=== PATIENT | male | born 1970 | race Caucasian/White ===

== ENCOUNTER 2021-09-25 10:05 | Outpatient (REF) | payer MEDICAID, SELFPAY ==
[2021-09-25 10:57] LABS: COVID-19 Test Negative (Negative); IDNOW Serial# 08D9AD1C
== END 2021-09-25 10:06 | disposition home or self-care (01) ==
LOC: HO.LAB 10:05
PROVIDERS: Visit Provider Internal Medicine
DX: Z20.822 Contact with and (suspected) exposure to COVID-19 (principal)
CPT/HCPCS: 87635; C9803

== ENCOUNTER 2023-10-01 14:55 | Outpatient (REF) | payer MEDICAID, SELFPAY ==
[2023-10-01 16:36] LABS: Estimated Average Glucose 94 mg/dL; Hemoglobin A1c % 4.9 % (<6.0)
[2023-10-01 17:45] LABS: Alanine Aminotransferase 49 U/L (0-40); Albumin Level 4.4 g/dL (3.5-5.0); Alkaline Phosphatase 73 U/L (39-117); Anion Gap 9 (12-20); Aspartate Amino Transferase 30 U/L (5-37); Bilirubin Total 0.6 mg/dL (0.0-1.0); Blood Urea Nitrogen 10 mg/dL (9-16); Carbon Dioxide 29 mmol/L (22-29); Chloride 102 mmol/L (96-108); Cholesterol 197 mg/dL (<200); Estimated Glomerular Filt Rate > 60; Glucose Random 71 mg/dL (60-115); HDL Cholesterol 48 mg/dL (>40); LDL Cholesterol Calculated 89 mg/dL (<100); Potassium 4.1 mmol/L (3.3-5.1); Sodium 136 mmol/L (135-145); Total Protein 7.2 g/dL (6.5-8.0); Triglycerides 302 mg/dL (<150)
[2023-10-02 04:24] LABS: HIV AB/AG Nonreactive (Nonreactive); HIV Num 1 0.05 S/CO (0.00-0.99); ~Hepatitis C Antibody Nonreactive (Nonreactive)
[2023-10-02 05:52] LABS: CT PCR NOT DETECTED (Not Detect.); NG PCR NOT DETECTED (Not Detect.)
[2023-10-03 09:29] LABS: RPR Rapid Plasma Reagin NON-REACTIVE (NON-REACTIVE)
== END 2023-10-01 14:56 | disposition home or self-care (01) ==
LOC: HO.HHCL 14:55
PROVIDERS: Visit Provider General Practice
DX: Z00.00 Encounter for general adult medical examination without abnormal findings (principal)
CPT/HCPCS: 0353U; 36415; 80053; 80061; 83036; 86592; 86803; 87389

== ENCOUNTER 2024-08-13 10:13 | Outpatient (REF) | payer MEDICAID, SELFPAY ==
--- NOTE | ~2024-08-13 | XR_ITS ---
EXAMINATION: XR LUMBOSACRAL SPINE CLINICAL INFORMATION: pain ; left-sided low back pain with left sided sciatica. COMPARISON: 10/20/2018. TECHNIQUE: Three views of the lumbosacral spine. FINDINGS: Normal bone mineralization. No fractures, compression deformities, or suspicious bone lesions. Transitional lumbosacral anatomy present with 6 nonrib-bearing vertebral bodies. For the purposes of this report, the last fully formed vertebral body will be termed L5. If intervention is considered, confirmation of level counting is recommended. There is a trace left convex scoliosis. There is a normal lumbar lordosis. There is a 3 mm retrolisthesis of L3-4. This appears degenerative. Alignment is otherwise normal. Mild to moderate disc space narrowing noted at L3-4 and L4-5. Minimal narrowing at L5-S1. Facets are normally aligned. No pars defects. Mild degenerative facet arthropathy present L4-S1. The sacrum and SI joints appear normal. No soft tissue abnormalities. XR/XR lumbar spine 2-3V IMPRESSION: 1. No acute findings lumbar spine. 2. Transitional lumbosacral anatomy. See above. 3. Mild spondylosis relatively confined to L3-S1 as discussed. Electronically signed by: Jerome Calderón MD 08/13/2024 12:37 PM [facility]
== END 2024-08-13 10:14 | disposition home or self-care (01) ==
LOC: HO.HHCX 10:13
PROVIDERS: Visit Provider Student in an Organized Health Care Education/Training Program
DX: M54.50 Low back pain, unspecified (principal); G89.29 Other chronic pain
CPT/HCPCS: 72100

== ENCOUNTER → 2024-08-13 10:13 | Outpatient (BNV) | payer MEDICAID, SELFPAY | PROVIDERS: Visit Provider Radiology Diagnostic Radiology | DX: M54.42 Lumbago with sciatica, left side (principal) | CPT/HCPCS: 72100 ==

== ENCOUNTER 2024-11-02 08:54 | Outpatient (AMB) | payer MEDICAID, SELFPAY ==
--- NOTE | 2024-11-02 08:56 | MHC.OFFVIS ---
Vital Signs 11/02/24 09:10 Height 5 ft 7 in Weight 169 lb 12.095 oz BMI 26.6 BP 156/82 H Blood Pressure Location Rt brachial Position Sitting Pulse 88 Pulse Source Pulse Oximeter Pulse Oximetry (%) 98 Oxygen Delivery Method Room Air Intake Visit Reasons: Colonoscopy screening Intake Note: NEW PATIENT for initial colo screening. Chief Complaint; C/O intermittent constipation and bitter taste. Pt denies any heartburn or dysphagia at this time, no tx to this point. Pt denies any additional concerns or pertinent FMHx. Pt was shown med list and verified accurate. President And Chief Executive Officer Required: Yes President And Chief Executive Officer Services: President And Chief Executive Officer Present President And Chief Executive Officer Name: [facility] [place] + Ham [id number] Information Interpreted: clinical only Accompanied by: Self / Same As Patient Allergies shellfish derived Allergy (Severe, Verified 11/02/24 08:56) Anaphylaxis marijuana (cannabis) Allergy (Unknown, Verified 11/02/24 08:56) Unknown HPI HPI Colonoscopy screening: Details: 54 year old? male with past medical history of asthma, inguinal hernia, status post repair, allergies is here today for pre colonoscopy screening.? Patient was sent to us by his PCP.? This is his first colonoscopy screening.? Patient denies any gastrointestinal symptoms in the past or at present.? Denies any personal or family history of gastrointestinal disease, colon polyps, or CRC.? Denies history of difficulty with sedation or anesthesia in the past.? Negative for history of sleep apnea.? Denies any history of cardiac, renal, pulmonary, or hepatic disease.?? No history of infectious? diseases like hepatitis A, B, C, HIV or tuberculosis.? Patient is not on any anticoagulation [facility] Medical History Inguinal hernia Gastroesophageal junction ulcer Allergic reaction to plant, excluding food Mild persistent asthma Mood disorder Psoriasis Chronic low back pain Surgical History History of esophagogastroduodenoscopy Social History Alcohol intake: unknown Patient Tobacco Use Status: Current everyday Tobacco user Review of Systems Const Denies weight gain and Denies weight loss ENT Reports no additional complaints, Denies dysphagia and Denies odynophagia Card Reports no additional complaints Resp Reports no additional complaints GI Denies abdominal pain, Denies belching, Denies melena, Denies bloating, Denies change in bowel habits, Denies dysphagia, Denies excessive flatus, Denies dyspepsia, Denies heartburn, Denies diarrhea, Denies loose stools, Denies nausea, Denies odynophagia and Denies vomiting Reports no additional complaints Musc Reports no additional complaints Neuro Reports no additional complaints Psych Reports no additional complaints Endo Reports no additional complaints Physical Exam Vital Signs: Last Vital Signs Pulse 88 11/02/24 09:10 BP 156/82 H 11/02/24 09:10 Pulse Ox 98 11/02/24 09:10 Oxygen Delivery Method Room Air 11/02/24 09:10 BMI result Body Mass Index 26.6 Const General: healthy appearing, no acute distress and well developed Nutritional Appearance: well nourished Orientation/consciousness: patient oriented x3 Resp Effort & Inspection: normal respiratory effort, able to speak in complete sentences, no tracheal deviation and symmetric chest movement Auscultation: clear to auscultation bilaterally Cardio Rate: regular rate GI Inspection: Yes normal to inspection and No distended Palpation (GI): Soft to palpation, not firm, nontender and No hepatosplenomegaly present Auscultation: normal bowel sounds General: Yes no CVA tenderness Back/Spine/Pelvis Back: no CVA tenderness Skin General skin exam: elasticity normal, turgor normal and dry skin Neuro General: patient oriented x3 Psych Appearance: grossly normal Mental Status: mental status grossly normal Assessment & Plan Assessment & Plan (1) Screen for colon cancer: Code(s): Z12.11 - Encounter for screening for malignant neoplasm of colon Plan Patient denies any GI, cardiac or respiratory symptoms.? Denies any issues with anesthesia in the past.? Denies any history of sleep apnea.? No history infectious diseases in the past or present.? Not on any anticoagulation therapy.? No family or personal history of colon cancer or polyps.? Patient denies melena, hematochezia, unintentional weight loss or ribbon like stools.? Discussed at length the pre-procedure,? prep, diet & medications as well as what to expect prior, during and after the procedure.?? Stressed the importance of good bowel prep.? Recommended the use of Vaseline or Calmoseptine OTC & baby wipes with bowel movements to promote comfort.? ?Patient verbalizes understanding and agrees to plan of care.? He was given the opportunity to ask questions and all questions answered.? We will see him after the procedure.? Medications: New bisacodyl (Dulcolax (bisacodyl)) take 4 tabs at noon the day before your colonoscopy 20 mg (4 x 5 mg) PO ONCE 1 day 4 tabs 0RF constipation Z12.11 - Encounter for screening for malignant neoplasm of colon polyethylene glycol 3350 (Miralax) As directed by gastroenterology department at [facility] 238 grams PO ONCE 238 grams 0RF Z12.11 - Encounter for screening for malignant neoplasm of colon Coding Level of Care Code New Pt Level 3 (45942) Diagnoses Screen for colon cancer Z12.11 Time Spent (min) 40 Comment 30 minutes spent with patient and additional 10 minutes spent reviewing his records
[2024-11-02 09:10] VITALS: BP 156/82; PULSE 88; O2SAT 98; BMI 26.6
--- OUTSIDE RECORDS SUMMARY | 2024-11-02 09:30 | XMS_ITS | Encounter Summary ---
Author Organization [employer] Address [address] [facility] [address] [facility] [address] [place] [address] Care Team Providers Care Product Sales Engineer Name Role Phone Jil Tavarez Primary Care Provider [phone] Dian Chen MD Primary Care Provider [phone] Encounter Details Date Type Department Care Team (Late st Contact Info) Description 05/16/2023 Abstract [facility] ADULT DENTAL [address] [place] [address] Segun Richardson, FREDRICK [address] [place] [address] Social History Tobacco Use Types Packs/Day Years Used Date Smoking Tobacco: Every Day Cigarettes Smokeless Tobacco: Never Alcohol Use Standard Drinks/Week Comments Yes 0 (1 standard drink = 0.6 oz pur e alcohol) Depression Answer Date Recorded Patient Health Questionnaire-9 Score 0 12/18/2022 Housing Stability Answer Date Recorded What is your housing situation today? I have claudiolorena lance 05/16/[address] you li ve. Do you have problems with any of the following? None of the above 05/16/2023 Food Insecurity Answer Date Recorded Within the past 12 months, y ou worried that your food would run out before you got money to buy more: Never True 05/16/2023 Within the past 12 months,th e food you bought just didn't last and you didn't have enough money to get more: Never True Transportation Answer Date Recorded In the past 12 months, has l ack of transportation kept you from medical appts, meetings, work or from getting things needed for daily living? No 05/16/2023 Utilities Answer Date Recorded In the past 12 months, has t he electric, gas, oil or water company threatened to shut off services in your home? No 05/16/2023 Depression Answer Date Recorded Patient Health Questionnaire-2 Score 0 12/18/2022 Sex and Gender Information Value Date Recorded Sex Assigned at Male 06/03/2022 10:35 AM EDT Legal Sex Male 10:35 AM EDT Gender Identity Male 06/03/2022 10:35 AM EDT Sexual Orientation Straight 06/03/2022 10 :35 AM EDT documented as of this encounter Plan of Treatment Upcoming Encounters Date Type Department Care Team (Late st Contact Info) Description 01/03/2025 8:00 AM EDT Office Visit [facility] ADULT DENTAL [address] [place] [address] Kristy Espinoza 01/05/2025 4:00 PM EDT Office Visit [facility] MEDICINE [address] [place] [id number] Dian Chen MD [address] [place] [phone] documented as of this encounter Visit Diagnoses Not on filedocumented in this encounter Additional Health Concerns Assessment Noted Time PHQ-9 Depression Total Score: 0 12/19/19 23 9:49 AM EDT documented as of this encounter Care Teams Product Sales Engineer Relationship Specialty Start Date End Date Jil Tavarez FNP [address] [place] [id number] PCP - General Family Medicine 02/11/23 09/30/23 Dian Chen MD [address] [place] [id number] PCP - General Family Medicine 10/01/23 documented as of this encounter
--- OUTSIDE RECORDS SUMMARY | 2024-11-02 09:31 | XMS_ITS | Encounter Summary ---
Author Organization [employer] [facility] Address [address] [place] [address] [address] [place] [address] Care Team Providers Care Customer Relations Consultant Name Role Phone Emma Melara Primary Care Provider [phone] Jil Tavarez Primary Care Provider [phone] Dian Chen MD Primary Care Provider Encounter Details Date Type Department Care Team (Latest Contact Info) Description 04/09/2022 Abstract [facility] CONVERSIONS Dental, Provider, DDS Social History Tobacco Use Types Packs/Day Years Used Date Smoking Tobacco: Never Assessed Sex and Gender Information Value Date Recorded Sex Assigned at Male 06/03/2022 10:35 AM EDT Legal Sex Male 10:35 AM EDT Gender Identity Male 06/03/2022 10:35 AM EDT Sexual Orientation Straight 06/03/2022 10 :35 AM EDT documented as of this encounter Plan of Treatment Upcoming Encounters Date Type Department Care Team ( st Contact Info) Description 01/03/2025 8:00 AM EDT Office Visit [facility] ADULT DENTAL [address] [place] [address] Kristy Espinoza 01/05/2025 4:00 PM EDT Office Visit [facility] MEDICINE [address] [place] [address] Dian Chen MD [address] [place] [address] documented as of this encounter Visit Diagnoses Not on filedocumented in this encounter Care Teams Customer Relations Consultant Relationship Specialty Start Date End Date Emma Melara FNP PCP - General Family Medicine 04/07/22 02/10/23 Jil Tavarez FNP [address] [place] [address] PCP - General Family Medicine 02/11/23 09/30/23 Dian Chen MD [address] [place] [address] PCP - General Family Medicine 10/01/23 documented as of this encounter
--- OUTSIDE RECORDS SUMMARY | 2024-11-02 09:31 | XMS_ITS | Clinical Summary ---
Author Organization [id number] [facility] Address [address] [place] [address] Care Team Providers Care Tanker Driver Name Role Phone Dian Chen MD Primary Care Provider [phone] Allergies Active Allergy Reactions Criticality Noted Date Comments Shellfish-Derived Products 3 Medications cetirizine (ZyrTEC) 10 MG tabletIndication s:Allergic reaction, initial encounter Take 1 tablet (10 mg) by mouth in the morning. 30 tablet 11 3 Active EPINEPHrine (Epipen) 0.3 MG/0.3ML injection syringeIndicatio ns:Allergic reaction, initial encounter Inject 0.3 mL (0.3 mg) as directed 1 (one) time if needed for anaphylaxis for up to 1 dose. Inject into upper leg. Call 911 after use. 1 each 3 Active Sodium Fluoride (PreviDent 5000 Booster Plus) 1.1 % paste Apply 1 Application. to teeth 2 times daily. 112 g 3 4 Active budesonide (Pulmicort) 180 MCG/ACT inhaler Inhale 1-2 puffs in the morning. Rinse mouth with water after use to reduce aftertaste and incidence of candidiasis. Do not swallow. 1 each 11 4 Active albuterol 108 (90 Base) MCG/ACT inhalerIndicatio ns:Allergic reaction, initial encounter Inhale 2 puffs every 6 (six) hours if needed for wheezing. 18 g 6 4 04/23/20 25 Active tacrolimus (Protopic) 0.03 % ointmentIndicati ons:Psoriasis Apply topically 2 times daily. As needed to psoriasis lesions 100 g 6 4 04/23/20 25 Active ibuprofen 800 MG tablet Take 1 tablet (800 mg) by mouth 3 times daily. 90 tablet 2 5 11/12/19 25 Active Diclofenac Sodium (Voltaren) 1 % gel Use topical BID 100 g 3 5 Active cyclobenzaprine (Flexeril) 10 MG tabletIndication s:Left-sided low back pain without sciatica, unspecified chronicity Take 1 tablet (10 mg) by mouth if needed in the morning and at bedtime for muscle spasms for up to 10 days. 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 Routine history and physical examination of adul t 10/03/2023 Mild persistent asthma without complication 09/05 Assessment & Plan (10/03/2023 6:21 AM EST): Using SHWETHA frequently, up to multiple times a day Add budesonide 2 puffs in the morning daily Mood disorder 12/02/2018 Low back pain radiating to left leg 10/19/2018 Assessment & Plan (10/17/2024 10:41 PM EDT): PT- complete treatment course CAM/accupuncture- recommended, gave flyer about acupuncture clinic Meds- declines further medication trials Injection- not indicated Surgery- not indicated Signed paperwork indicating patient should be temporarily unemployed for 6-8 weeks of treatment Psoriasis 10/19/2018 Assessment & Plan (10/03/2023 6:19 AM EST): Trial Tacrolimus OTC emollients Stress reduction Encounters Date Type Department Care Team Description 10/15/2024 2:00 PM EDT Office Visit [facility] [address] [place] [address] Dian Chen MD Low back pain radiating to left leg (Primary Dx); Dietary counseling; Exercise counseling; Overweight 10/15/2024 Population Health Risk Score [facility] () Department [address] [place] [phone] Provider, Population Health Generic 10/13/2024 Telephone [facility] [address] [place] [phone] Dian Chen MD Appointment Request 10/12/[address] [address] Dian Chen MD Unemployment Form (I called the patient, regarding a Health Care Provider's Statement of Capability, from the Department of Unemployment. I informed him that he needs to schedule an appointment with his provider, to discuss why he is unable to work at this time. He verbalized understanding. A message was sent to the [facility] Team MAs, asking them to contact him with an appointment. ) 09/07/2024 9:00 AM EST Office Visit [facility] [address] [address] Elena Saravia MD Low back pain radiating to left leg (Primary Dx) 08/21/2024 10:00 AM EST Office [facility] [address] [address] Joe Sorensen MD Left-sided low back pain without sciatica, unspecified chronicity (Primary Dx) 08/21/2024 Travel 08/20/[address] [address] Dian Chen MD Results 08/13/2024 10:00 AM EST [facility] [address] [address] Tayler Rodriguez MD Chronic left-sided low back pain with left-sided sciatica (Primary Dx) 08/09/2024 9:00 AM EST Office Visit [facility] [address] [place] [phone] Segun Richardson DMD from Last 3 Months Immunizations Name Administration Dates Next Due Pneumococcal Conjugate PCV 20 10/01/2023 Tdap 10/01/2023 Family History Medical History Relation Name Comments Diabetes type II Father Diabetes type II Mother Relation Name Status Comments Father Mother Social History Tobacco Use Types Packs/Day Years Used Date Smoking Tobacco: Every Day Cigarettes Smokeless Tobacco: Never Tobacco Cessation:Ready to Q uit: Not Asked; Counseling Given: Not Answered Alcohol Use Standard Drinks/Week Comments Never 0 (1 standard drink = 0.6 oz pur e alcohol) Alcohol Answer Date Recorded Frequency of Alcohol Consumption Not on file 10/01/2023 Average Number of Drinks Not on file 024 Frequency of Binge Drinking Not on file 09/05 Score 0 10/01/2023 Depression Answer Date Recorded Patient Health Questionnaire-9 Score 0 10/01/2023 Patient Health Questionnaire-9 Score 0 10/01/2023 Last PHQ-9: Questionnaire Data Not on file 0 10/01/2023 Housing Stability Answer Date Recorded What is your housing situation today? I have claudio lance 06/09/[address] you li ve. Do you have problems with any of the following? None of the above 06/09/2023 Food Insecurity Answer Date Recorded Within the past 12 months, y ou worried that your food would run out before you got money to buy more: Never True 06/09/2023 Within the past 12 months,th e food you bought just didn't last and you didn't have enough money to get more: Never True 01/2023 Transportation Answer Date Recorded In the past 12 months, has l ack of transportation kept you from medical appts, meetings, work or from getting things needed for daily living? Yes, it has kept me from medical appointments or getting medications. 10/01/2023 Utilities Answer Date Recorded In the past 12 months, has t he electric, gas, oil or water company threatened to shut off services in your home? No 06/09/2023 Depression Answer Date Recorded Patient Health Questionnaire-2 Score 0 10/01/2023 Sex and Gender Information Value Date Recorded Sex Assigned at Male 06/03/2022 10:35 AM EDT Legal Sex Male 10:35 AM EDT Gender Identity Male 06/03/2022 10:35 AM EDT Sexual Orientation Straight 06/03/2022 10 :35 AM EDT Last Filed Vital Signs Vital Sign Reading Time Taken Comments Blood Pressure 155/87 10/15/2024 2:12 PM EDT Pulse 91 10/15/2024 2:12 PM EDT Temperature 36.8 ??C (98.2 ??F) 10/15/2024 2:12 PM ED T Respiratory Rate 16 10/15/2024 2:12 PM EDT Oxygen Saturation 98% 10/15/2024 2:12 PM EDT Inhaled Oxygen Concentration - - Weight 76.7 kg (169 lb) 10/15/2024 2:12 PM EDT Height 170.2 cm (5' 7 ) 08/21/2024 9:33 AM EST Body Mass Index 26.47 08/21/2024 9:33 AM EST Plan of Treatment Upcoming Encounters Date Type Department Care Team (Late st Contact Info) Description 01/03/2025 8:00 AM EDT Office Visit [facility] [address] [place] [address] Kristy Espinoza 01/05/2025 4:00 PM EDT Office Visit [facility] [address] [place] [address] Dian Chen MD [address] [place] [address] Health Maintenance Due Date Last Done Comments CT Colonography 1971 Colonoscopy 1971 Colorectal Cancer Screening 1971 FIT DNA/Cologuard 1971 FIT 1971 FOBT 1971 Sigmoidoscopy 1971 Alcohol/Substance Use Screening 1983 Hepatitis B Vaccines (1 of 3 - 19+ 3-dose series) 1990 Zoster Vaccines (1 of 2) 2021 COVID-19 Vaccine ( season) 2024 11/25/2020, 10/28/2020 Influenza Vaccine (#1) 2024 Depression Screening 10/01/2024 10/01/2023, 10/01/19 SDOH Screening 10/01/2024 10/01/2023 Dental Prophylaxis 12/15/2024 06/16/2024, 0 09/24/2023, 04/09/2022, Additional history exists Dental Oral Exam 02/07/2025 08/09/2024, , 12/07/2018 Dental X-Ray: Bitewings 08/10/2025 08/09/19, 09/24/2023, 04/24/2023, Additional history exists Tobacco Screening 10/17/2025 10/17/2024 Dental X-Ray: Full Mouth 09/25/2026 09/24/2023, 05/0 01/2019 Lipid Panel 10/01/2028 10/01/2023 DTaP/Tdap/Td Vaccines (2 - Td or Tdap) 10/01/2033 10/01/2023 RSV Patients and Patients Aged 60 years or older (1 - 1-dose 75+ series) 2046 HIV Screening Completed 10/01/2023 Hepatitis C Screening Completed 10/01/2023 Pneumococcal Vaccine: 50+ Years Completed 10/01/2023 HIB Vaccines Aged Out No longer eligi ble based on patient's age to complete this topic HPV Vaccines Aged Out No longer eligi ble based on patient's age to complete this topic Hepatitis A Vaccines Aged Out No long er eligible based on patient's age to complete this topic IPV Vaccines Aged Out No longer eligi ble based on patient's age to complete this topic Meningococcal Vaccine Aged Out No marcy ej eligible based on patient's age to complete this topic RSV under 20 months Aged Out No longe r eligible based on patient's age to complete this topic Rotavirus Vaccines Aged Out No longer eligible based on patient's age to complete this topic Procedures Procedure Name Priority Date/Time Associated Diagnosis Comments XR LUMBAR SPINE 2-3 VIEWS Routine 08/13/2024 10:13 AM EST Chronic left-sided low back pain with left-sided sciatica CASE PRESENTATION, DETAILED AND EXTENSIVE TREATMENT PLANNING Routine 08/09/2024 9:00 AM EST INTRAORAL - PERIAPICAL EACH ADDITIONAL RADIOGRAPHIC IMAGE Routine 08/09/2024 9:00 AM EST 8 INTRAORAL - PERIAPICAL FIRST RADIOGRAPHIC IMAGE Routine 08/09/2024 9:00 AM EST BITEWINGS - 4 RADIOGRAPHIC IMAGES Routine 08/09/2024 9:00 AM EST PERIODIC ORAL EVALUATION - ESTABLISHED PATIENT Routine 08/09/2024 9:00 AM EST PROPHYLAXIS - ADULT Routine 06/16/2024 1 1:00 AM EST Dental plaque Dental calculus HEPATITIS C AB W/REFL TO HCV RNA, QN, PCR Routine 10/01/2023 2:58 PM EST Routine history and physical examination of adult HIV 1/2 ANTIGEN/ANTIBODY, FOURTH GENERATION W/RFL Routine 10/01/2023 2:58 PM EST Routine history and physical examination of adult LIPID PANEL, STANDARD Routine 10/01/2023 2:58 PM EST Routine history and physical examination of adult INTRAORAL - COMPLETE SERIES OF RADIOGRAPHIC IMAGES Routine 09/24/2023 1:00 PM EST from Last 3 Months or Most Recently Relevant to Health Maintenance Results * XR Lumbar Spine 2-3 Views (08/13/2024 10:13 AM EST) Anatomical Region Laterality Modality Spine, L-spine Radiographic Hali ging 08/13/2024 10:1 3 AM EST Narrative 08/13/2024 12:40 PM EST ?[facility] ?[address] ?[place] [address] ?XRay Report ? Signed ? Patient: Huang Roche ?MR# ?? : [id number] ? : 1970 ?Acct:[id number] ? Age/Sex: 54 / M ?ADM Date: 08/13/24 ? Loc: HO.HHCX ? Attending Dr: Tayler Rodriguez MD ? Ordering Physician: Tayler oRdriguez MD ?? Date of Service: 08/13/24 ?? Procedure(s): XR lumbar spine 2-3V ?? Accession Number(s): [id number] ? cc: Tayler Rodriguez MD ? EXAMINATION: ?? XR LUMBOSACRAL SPINE ? CLINICAL INFORMATION: ?? pain ; left-sided low back pain with left sided sciatica. ? COMPARISON: ?? 10/20/2018. ? TECHNIQUE: ?? Three views of the lumbosacral spine. ? FINDINGS: ?? Normal bone mineralization. No fractures, compression deformities, or ?? suspicious bone lesions. ?? Transitional lumbosacral anatomy present with 6 nonrib-bearing ?? vertebral bodies. For the purposes of this report, the last fully ?? formed vertebral body will be termed L5. If intervention is considered, ?? confirmation of level counting is recommended. ?? There is a trace left convex scoliosis. ?? There is a normal lumbar lordosis. ?? There is a 3 mm retrolisthesis of L3-4. This appears degenerative. ?? Alignment is otherwise normal. ? Mild to moderate disc space narrowing noted at L3-4 and L4-5. Minimal ?? narrowing at L5-S1. ?? Facets are normally aligned. No pars defects. ?? Mild degenerative facet arthropathy present L4-S1. ? The sacrum and SI joints appear normal. ? No soft tissue abnormalities. ? XR/XR lumbar spine 2-3V ?? IMPRESSION: ?? 1. No acute findings lumbar spine. ?? 2. Transitional lumbosacral anatomy. See above. ?? 3. Mild spondylosis relatively confined to L3-S1 as discussed. ? Electronically signed by: ??Jerome Calderón MD ??08/13/2024 12:37 PM EST RP ? Dictated By: ?Jerome Calderón MD ? Signed By: ?<Electronically signed by Jerome Calderón MD in OV> ?08/13/24 1237 ? DD/ 1013 ? TD/TT: 08/13/24 1020 ? Sheet Metal Erector: ? Procedure Note Denisyaya, Image - 08/13/[address] [address] XRay Report Signed Patient: Mckenzie Roche# : [id number] : 1970Acct:[id number] Age/Sex: 54 / MADM Date: 08/13/24 Loc: HO.HHCX Attending Dr: Tayler Rodriguez MD Ordering Physician: Tayler Rodriguez MD Date of Service: 08/13/24 Procedure(s): XR lumbar spine 2-3V Accession Number(s): [id number] cc: Tayler Rodriguez MD EXAMINATION: XR LUMBOSACRAL SPINE CLINICAL INFORMATION: pain ; left-sided low back pain with left sided sciatica. COMPARISON: 10/20/2018. TECHNIQUE: Three views of the lumbosacral spine. FINDINGS: Normal bone mineralization. No fractures, compression deformities, or suspicious bone lesions. Transitional lumbosacral anatomy present with 6 nonrib-bearing vertebral bodies. For the purposes of this report, the last fully formed vertebral body will be termed L5. If intervention is considered, confirmation of level counting is recommended. There is a trace left convex scoliosis. There is a normal lumbar lordosis. There is a 3 mm retrolisthesis of L3-4. This appears degenerative. Alignment is otherwise normal. Mild to moderate disc space narrowing noted at L3-4 and L4-5. Minimal narrowing at L5-S1. Facets are normally aligned. No pars defects. Mild degenerative facet arthropathy present L4-S1. The sacrum and SI joints appear normal. No soft tissue abnormalities. XR/XR lumbar spine 2-3V IMPRESSION: 1. No acute findings lumbar spine. 2. Transitional lumbosacral anatomy. See above. 3. Mild spondylosis relatively confined to L3-S1 as discussed. Electronically signed by: Jerome Calderón MD 08/13/2024 12:37 PM EST Dictated By: Jerome Calderón MD Signed By: <Electronically signed by Jerome Calderón MD in OV> 08/13/24 1237 DD/ 1013 TD/TT: 08/13/24 1020 Sheet Metal Erector: us Tayler Rodriguez MD IMG XR PROCEDURES Final Result * Hepatitis C Antibody with Reflex to HCV, RNA, Quantitative, Real-Time PCR (10/01/2023 2:58 PM EST) Hepatitis C Antibody Nonreactive Nonreactive [facility] Comment:Antibodies to HCV no t detected; does not exclude early acuteHCV infection. Blood Venous blood specimen / Unknown 10/01/2023 2:58 PM EST 10/01/2023 4:06 PM EST us Dian Chen MD LAB BLOOD ORDERABLES Final Res ult [facility] [address] [place] [address] [phone] * HIV-1/2 Antigen and Antibodies, Fourth Generation, with Reflexes (10/01/2023 2:58 PM EST) HIV AB/AG Nonreactive Nonreactive [facility] Comment:HIV-1 p24 Ag and/or HIV-1/HIV-2 Ab not detected.A test result that is nonreactive does not exclude thepossibility of exposure to or infection with HIV-1 and/orHIV-2. Nonreactive results in this assay for individualswith prior exposure to HIV-1 and/or HIV-2 may be due toantigen and antibody levels that are below the limit ofdetection of this assay.The [employer] HIV Ag/Ab Combo assay result andsupplemental assay results should be interpreted inconjunction with the patient's clinical presentation,history and other laboratory results. If the results areinconsistent with clinical evidence, additional testing issuggested to confirm the result. Blood Venous blood specimen / Unknown 10/01/2023 2:58 PM EST 10/01/2023 4:06 PM EST us Dian Chen MD LAB BLOOD ORDERABLES Final Res ult [facility] [address] [place] [phone] * (ABNORMAL) Lipid Panel, Standard (10/01/2023 2:58 PM EST) Triglycerides 302(H) <150 mg/dL [facility] Comment:Desirable Triglyceri de: less than 150 mg/dLBorderline High Triglyceride 150-199 mg/dLHigh Triglyceride: 200-499 mg/dLVery High Triglyceride: greater than or equal to 5OO mg/dL Cholesterol 197 <200 mg/dL [facility] Comment:Desirable Cholestero l: less than 200 mg/dLBorderline High Cholesterol: 200-239 mg/dLHigh Cholesterol: greater than 239 mg/dL LDL Cholesterol Calculated 89 <100 mg/dL [facility] Comment:Desirable LDL: less than 100 mg/dLNear Optimal/Above Optimal LDL: 110- 129 mg/dLBorderline High LDL: 130-159 mg/dLHigh LDL: 160-189 mg/dLVery High LDL: greater than or equal to 190 mg/dL HDL Cholesterol 48 >40 mg/dL [facility] Comment:Desirable HDL: great er than 40 mg/dL Note: This HDL assay may give artificially low results in patients with liver disease. Blood Venous blood specimen / Unknown 10/01/2023 2:58 PM EST 10/01/2023 4:06 PM EST us Dian Chen MD LAB BLOOD ORDERABLES Final Res ult [facility] [address] [place] [address] [phone] from Last 3 Months or Most Recently Relevant to Health Maintenance Insurance [employer] PARTIAL DENTAL - [employer] PARTIAL (MEDICAID) Care Teams Tanker Driver Relationship Specialty Start Date End Date Dian Chen MD [address] [place] [address] PCP - General Family Medicine 10/01/23
--- OUTSIDE RECORDS SUMMARY | 2024-11-02 09:31 | XMS_ITS | Encounter Summary ---
Author Organization [employer] [facility] Address [address] [place] [address] [address] [place] [address] Care Team Providers Care Mine Supervisor Name Role Phone Emma Melara Primary Care Provider [phone] Jil Tavarez Primary Care Provider [phone] Dian Chen MD Primary Care Provider [phone] Encounter Details Date Type Department Care Team (Latest Contact Info) Description 01/27/2019 Abstract [facility] Dental, Provider, DDS Social History Tobacco [...] Description 01/03/2025 8:00 AM EDT Office Visit [facility] [address] [place] [address] Kristy Espinoza 01/05/2025 4:00 PM EDT Office Visit [facility] [address] [place] [address] Dian Chen MD [address] [place] [address] documented as of this encounter Visit Diagnoses Not on filedocumented in this encounter Care Teams Mine Supervisor Relationship Specialty Start Date End Date Emma Melara FNP PCP - General Family Medicine 04/07/22 02/10/23 Jil Tavarez FNP [address] [place] [address] PCP - General Family Medicine 02/11/23 09/30/23 Dian Chen MD [address] [place] [address] PCP - General Family Medicine 10/01/23 documented as of this encounter
== END 2024-11-02 09:42 | disposition home or self-care (01) ==
LOC: HO.HGI 08:55
PROVIDERS: PCP Internal Medicine; Visit Provider Nurse Practitioner Family
DX: Z01.818 Encounter for other preprocedural examination (principal); Z12.11 Encounter for screening for malignant neoplasm of colon
CPT/HCPCS: 99202

== ENCOUNTER → 2024-11-02 08:54 | Outpatient (BNVA) | payer MEDICAID, SELFPAY | PROVIDERS: PCP Internal Medicine; Visit Provider Nurse Practitioner Family | DX: Z01.818 Encounter for other preprocedural examination (principal) | CPT/HCPCS: 99212 ==

== ENCOUNTER 2024-12-07 13:48 | Outpatient (RCR) | payer MEDICAID, OTHER, SELFPAY | END 2024-12-10 15:36 | disposition home or self-care (01) | LOC: HO.PT 13:48 | PROVIDERS: PCP General Practice; Visit Provider Family Medicine | DX: M54.50 Low back pain, unspecified (principal) | CPT/HCPCS: 97012; 97110; 97112; 97140; 97161 ==

== ENCOUNTER 2025-06-03 09:53 | Day surgery (SDC) | payer OTHER, SELFPAY ==
--- OUTSIDE RECORDS SUMMARY | 2025-05-03 09:00 | XMS_ITS | Encounter Summary ---
Author Organization [employer] Address [address] [place] [address] Care Team Providers Care Stitch Marker Name Role Phone Dian Chen MD Primary Care Provider [phone] Encounter Details Date Type Department Care Team (Late st Contact Info) Description 05/03/2025 9:00 AM EDT Office Visit [facility] [address] [place] [address] Adonis Vogt DDS [address] [place] [address] Social History Tobacco Use Types Packs/Day Years Used Date Smoking Tobacco: Every Day Cigarettes Smokeless Tobacco: Never Alcohol Use Standard Drinks/Week Comments Never 0 (1 standard drink = 0.6 oz pur e alcohol) Alcohol Answer Date Recorded Frequency of Alcohol Consumption Not on file 10/01/2023 Average Number of Drinks Not on file 024 Frequency of Binge Drinking Not on file 09/05 Score 0 10/01/2023 Depression Answer Date Recorded Patient Health Questionnaire-9 Score 3 01/05/2025 Patient Health Questionnaire-9 Score 3 01/05/2025 Last PHQ-9: Questionnaire Data Not on file 0 01/05/2025 Housing Stability Answer Date Recorded What is your housing situation today? I have claudio lance 12/24/[address] you li ve. Do you have problems with any of the following? None of the above 12/24/2024 Food Insecurity Answer Date Recorded Within the past 12 months, y ou worried that your food would run out before you got money to buy more: Never True 12/24/2024 Within the past 12 months,th e food you bought just didn't last and you didn't have enough money to get more: Never True Transportation Answer Date Recorded In the past 12 months, has l ack of transportation kept you from medical appts, meetings, work or from getting things needed for daily living? No 12/24/2024 Utilities Answer Date Recorded In the past 12 months, has t he electric, gas, oil or water company threatened to shut off services in your home? No 12/24/2024 Depression Answer Date Recorded Patient Health Questionnaire-2 Score 2 01/05/2025 Internet Access Answer Date Recorded Internet Access Q1 Yes 12/24/2024 Internet Access Q2 Not on file 12/24/2024 Sex and Gender Information Value Date Recorded Sex Assigned at Male 06/03/2022 10:35 AM EDT Legal Sex Male 10:35 AM EDT Gender Identity Male 06/03/2022 10:35 AM EDT Sexual Orientation Straight 06/03/2022 10 :35 AM EDT documented as of this encounter Progress Notes * Adonis Vogt DDS - 05/03/2025 9:00 AM EDT Patient to be rescheduled due to insurance lapse. [facility] confirms, insurance coverage to start later this week. - Dr. Vogt * Radha Perkins DDS - 05/03/2025 9:00 AM EDT I have reviewed the documentation and dental procedures completed by the rendering provider, Adonis Vogt DDS, and approve their chart entries for this visit. JACKIE Salamanca DDS documented in this encounter Plan of Treatment Upcoming Encounters Date Type Department Care Team (Late st Contact Info) Description 05/18/2025 2:30 PM EDT Office Visit [facility] [address] [place] [address] Adonis Vogt DDS [address] [place], [place] [phone] Scheduled Orders Name Type Priority Associated Diagnoses Orde r Schedule 31 MOD 31 MOD RESIN-BASED COMPOSITE - 3 SURF, POSTERIOR Dental Routine 1 Occurrences starting 05/03/2025 documented as of this encounter Procedures Procedure Name Priority Date/Time Associated Diagnosis Comments NO CHARGE PROCEDURE Routine 05/03/2025 9:00 AM EDT documented in this encounter Visit Diagnoses Not on filedocumented in this encounter Additional Health Concerns Assessment Noted Time PHQ-9 Depression Total Score: 3 01/06/20 25 4:27 PM EDT documented as of this encounter Care Teams Stitch Marker Relationship Specialty Start Date End Date Dian Chen MD [address] [place] [address] PCP - General Family Medicine 10/01/23 documented as of this encounter
--- OUTSIDE RECORDS SUMMARY | 2025-05-05 11:00 | XMS_ITS | Encounter Summary ---
Author Organization [employer] Address [address] [facility] [place] [address] Care Team Providers Care Crystallography Teacher Name Role Phone Dian Chen MD Primary Care Provider [phone] Reason for Visit * Reason Comments Filling Encounter Details Date Type Department Care Team ([facility] st Contact Info) Description 05/05/2025 11:00 AM EDT Office Visit [facility] [address] [place] [address] Adonis Vogt DDS [address] [place] [address] Social History Tobacco Use Types Packs/Day Years [...] AM EDT documented as of this encounter Last Filed Vital Signs Vital Sign Reading Time Taken Comments Blood Pressure 130/88 05/05/2025 10:55 AM EDT Pulse - - Temperature - - Respiratory Rate - - Oxygen Saturation - - Inhaled Oxygen Concentration - - Weight - - Height - - Body Mass Index - - documented in this encounter Plan of Treatment Upcoming Encounters Date Type Department Care Team (Late st Contact Info) Description 05/18/2025 2:30 PM EDT Office Visit [facility] ADULT D[facility] [address] [place] [address] Adonis Vogt DDS [address] [place] [address] documented as of this encounter Visit Diagnoses Not on filedocumented in this encounter Additional Health Concerns Assessment Noted Time PHQ-9 Depression Total Score: 3 01/06/20 25 4:27 PM EDT documented as of this encounter Care Teams Crystallography Teacher Relationship Specialty Start Date End Date Dian Chen MD [address] [place], [place] [phone] PCP - General Family Medicine 10/01/23 documented as of this encounter
--- OUTSIDE RECORDS SUMMARY | 2025-05-05 16:40 | XMS_ITS | Clinical Summary ---
Author Organization [employer] Address [address] [place] [address] 7t [place] [address] Care Team Providers Care Sales Representative Door To Door Name Role Phone Dian Chen MD Primary Care Provider [phone] Allergies Active Allergy Reactions Criticality Noted Date Comments Shellfish-Derived Products 3 Medications EPINEPHrine (Epipen) 0.3 MG/0.3ML injection syringeIndicat ions:Allergic reaction, initial encounter Inject 0.3 mL (0.3 mg) as directed 1 (one) time if needed for anaphylaxis for up to 1 dose. Inject into upper leg. Call 911 after use. 1 each 12/19/19 23 Active Sodium Fluoride (PreviDent 5000 Booster Plus) 1.1 % paste Apply 1 Application. to teeth 2 times daily. 112 g 3 09/24/19 24 Active albuterol 108 (90 Base) MCG/ACT inhalerIndicat ions:Allergic reaction, initial encounter Inhale 2 puffs every 6 (six) hours if needed for wheezing. 18 g 6 04/23/20 24 Active Bisacodyl EC 5 MG EC tablet TAKE 4 TABLETS BY MOUTH AT NOON THE DAY BEFORE COLONOSCOPY 11/03/19 25 Active GaviLAX 17 GM/SCOOP powder 238 G ORALLY ONCE DIRECTED BY GASTROENTEROLOGY DEPARTMENT AT [facility] 11/03/19 25 Active tacrolimus (Protopic) 0.03 % ointmentIndica tions:Psoriasi s Apply topically 2 times daily. As needed to psoriasis lesions 100 g 6 01/06/20 25 026 Active amoxicillin (Amoxil) 500 MG capsule Take 1 capsule (500 mg) by mouth every 8 (eight) hours for 7 days. 21 capsule 04/07/20 25 025 acetaminophen (Tylenol) 500 MG tablet Take 1 tablet (500 mg) by mouth every 8 (eight) hours if needed for mild pain or moderate pain for up to 5 days. 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 Routine history and physical examination of adul t 10/03/2023 Mood disorder 12/02/2018 Low back pain radiating [...] EST): Trial Tacrolimus OTC emollients Stress reduction Resolved Problems Problem Noted Date Diagnosed Date Resolved Date Mild persistent asthma without complication 10/01/2023 01/05/2025 Assessment & Plan (10/03/2023 6:21 AM EST): Using SHWETHA frequently, up to multiple times a day Add budesonide 2 puffs in the morning daily Encounters Date Type Department Care Team Description 05/05/2025 11:00 AM EDT Office Visit [facility] ADULT [facility] [address] [place] [address] Adonis Vogt DDS 05/03/2025 9:00 AM EDT Office Visit [facility] ADULT [facility] [address] [place] [address] Adonis Vogt DDS 04/18/2025 3:30 PM EDT Office Visit [facility] ADULT [facility] [address] [place] [address] Adonis Votg DDS 04/07/2025 10:30 AM EDT Office Visit [facility] ADULT D[facility] [address] [place] [address] Segun Richardson DMD from Last 3 Months Immunizations Immunization Administration Dates Next Due Pneumococcal Conjugate PCV [...] Pressure 130/88 05/05/2025 10:55 AM EDT Pulse 81 01/05/2025 4:10 PM EDT Temperature 36.3 C (97.3 F) 01/05/2025 4:10 PM EDT Respiratory Rate 18 01/05/2025 4:10 PM EDT Oxygen Saturation 96% 01/05/2025 4:10 PM EDT Inhaled Oxygen Concentration - - Weight 78.5 kg (173 lb) 01/05/2025 4:10 PM EDT Height 170.2 cm (5' 7 ) 01/05/2025 4:10 PM EDT Body Mass Index 27.1 01/05/2025 4:10 PM EDT Plan of Treatment Upcoming Encounters Date Type Department Care Team (Late st Contact Info) Description 05/18/2025 2:30 PM EDT Office Visit [facility] [address] [place] [address] Adonis Vogt, DDS [address] [place] [address] Health Maintenance Due Date Last Done Comments CT Colonography 1971 Colonoscopy 1971 Colorectal Cancer Screening 1971 FIT DNA/Cologuard 1971 FIT 1971 FOBT 1971 Sigmoidoscopy 1971 Hepatitis B Vaccines (1 of 3 - 19+ 3-dose series) 1990 Zoster Vaccines (1 of 2) 2021 COVID-19 Vaccine (3 - 2024- season) 2025 11/25/2020, 10/28/2020 Influenza Vaccine (#1) 2025 Dental Prophylaxis 07/06/2025 01/03/2025, 1 08/16/2023, 09/24/2023, Additional history exists Dental Oral Exam 10/06/2025 04/07/2025, 09/2024, 08/09/2024, Additional history exists SDOH Screening 12/24/2025 12/24/2024 Alcohol/Substance Use Screening 01/05/2026 01/05/2025 Depression Screening 01/05/2026 01/05/2025, 01/06/20 Disability Screening 01/05/2026 01/05/2025 Dental X-Ray: Bitewings 04/08/2026 04/07/20 25, 08/09/2024, 09/24/2023, Additional history exists Tobacco Screening 05/05/2026 05/05/2025 Dental X-Ray: Full Mouth 09/25/2026 09/24/2023, 05/0 [...] patient's age to complete this topic Meningococcal B Vaccine Aged Out No l onger eligible based on patient's age to complete [...] Diagnosis Comments NO CHARGE PROCEDURE Routine 05/03/2025 9 :00 AM EDT 31 LIMITED ORAL EVALUATION - PROBLEM FOCUSED Routine 04/18/2025 3:30 PM EDT CASE PRESENTATION, DETAILED AND EXTENSIVE TREATMENT PLANNING Routine 04/18/2025 3:30 PM EDT CASE PRESENTATION, DETAILED AND EXTENSIVE TREATMENT PLANNING Routine 04/07/2025 10:30 AM EDT INTRAORAL - PERIAPICAL EACH ADDITIONAL RADIOGRAPHIC IMAGE Routine 04/07/2025 10:30 AM EDT INTRAORAL - PERIAPICAL FIRST RADIOGRAPHIC IMAGE Routine 04/07/2025 10:30 AM EDT BITEWINGS - 4 RADIOGRAPHIC IMAGES Routine 04/07/2025 10:30 AM EDT PERIODIC ORAL EVALUATION - ESTABLISHED PATIENT Routine 04/07/2025 10:30 AM EDT PROPHYLAXIS - ADULT Routine 01/03/2025 8 :00 AM EDT Dental calculus Dental plaque HEPATITIS C AB W/REFL TO HCV RNA, [...] Recently Relevant to Health Maintenance Results * Hepatitis C Antibody with Reflex to HCV, RNA, Quantitative, Real-Time PCR (10/01/2023 2:58 PM EST) Hepatitis C Antibody Nonreactive Nonreactive [facility] Comment:Antibodies to HCV no t detected; does not exclude early acuteHCV infection. Blood Venous blood specimen / Unknown 10/01/2023 2:58 PM EST 10/01/2023 4:06 PM EST us Dian Chen MD LAB BLOOD ORDERABLES Final Res ult [facility] [address] [place] [address] [phone] * HIV-1/2 Antigen and Antibodies, Fourth Generation, with Reflexes (10/01/2023 2:58 PM EST) HIV AB/AG Nonreactive Nonreactive [facility] Comment:HIV-1 p24 Ag and/or HIV-1/HIV-2 Ab not detected.A test result that is nonreactive does not exclude thepossibility of exposure to or infection with HIV-1 and/orHIV-2. Nonreactive results in this assay for individualswith prior exposure to HIV-1 and/or HIV-2 may be due toantigen and antibody levels that are below the limit ofdetection of this assay.[employer] HIV Ag/Ab Combo assay result andsupplemental assay results should be interpreted inconjunction with the patient's clinical presentation,history and other laboratory results. If the results areinconsistent with clinical evidence, additional testing issuggested to confirm the result. Blood Venous blood specimen / Unknown 10/01/2023 2:58 PM EST 10/01/2023 4:06 PM EST us Dian Chen MD LAB BLOOD ORDERABLES Final Res ult [facility] [address] [place] [phone] * (ABNORMAL) Lipid Panel, Standard (10/01/2023 2:58 PM EST) Triglycerides 302(H) <150 mg/dL [facility] Comment:Desirable Triglyceri de: less than 150 mg/dLBorderline High Triglyceride 150-199 mg/dLHigh Triglyceride: 200-499 mg/dLVery High Triglyceride: greater than or equal to 5OO mg/dL Cholesterol 197 <200 mg/dL [facility] Comment:Desirable Cholestero l: less than 200 mg/dLBorderline High Cholesterol: 200-239 mg/dLHigh Cholesterol: greater than 239 mg/dL LDL Cholesterol Calculated 89 <100 mg/dL [facility] Comment:Desirable LDL: less than 100 mg/dLNear Optimal/Above Optimal LDL: 110- 129 mg/dLBorderline High LDL: 130-159 mg/dLHigh LDL: 160-189 mg/dLVery High LDL: greater than or equal to 190 mg/dL HDL Cholesterol 48 >40 mg/dL [facility] Comment:Desirable HDL: great er than 40 mg/dL Note: This HDL assay may give artificially low results in patients with liver disease. Blood Venous blood specimen / Unknown 10/01/2023 2:58 PM EST 10/01/2023 4:06 PM EST us Dian Chen MD LAB BLOOD ORDERABLES Final Res ult [facility] [address] [place] [phone] from Last 3 Months or Most Recently Relevant to Health Maintenance Insurance [place] [id number] [place] [address] [place] ADULT DENTAL - [place] (MEDICAID) [facility] [place] Care Teams Sales Representative Door To Door Relationship Specialty Start Date End Date Dian Chen MD [address] [place] [id number] PCP - General Family Medicine 10/01/23
--- OUTSIDE RECORDS SUMMARY | 2025-05-05 16:40 | XMS_ITS | Encounter Summary ---
Author Organization [facility] [employer] [facility] [employer] [facility] Address [address] [place] [address] 7t [place] [address] Care Team Providers Care Career Placement Specialist Name Role Phone Emma MelaraP Primary Care Provider Luisa Jil Arthur Primary Care Provider [phone] Dian Chen MD Primary Care Provider [phone] Encounter Details Date Type Department Care Team (Latest Contact Info) Description 04/09/2022 Abstract [facility] CONVERSIONS Dental, Provider, DDS Social History [...] Description 05/18/2025 2:30 PM EDT Office Visit [facility] [address] [place] [address] Adonis Vogt DDS [address] [place] [address] documented as of this encounter Visit Diagnoses Not on filedocumented in this encounter Care Teams Career Placement Specialist Relationship Specialty Start Date End Date Emma Melara FNP PCP - General Family Medicine 04/07/22 02/10/23 Jil Tavarez FNP [address] [place] [address] PCP - General Family Medicine 02/11/23 09/30/23 Dian Chen MD [address] [place] [address] PCP - General Family Medicine 10/01/23 documented as of this encounter
--- OUTSIDE RECORDS SUMMARY | 2025-05-05 16:40 | XMS_ITS | Encounter Summary ---
Author Organization [employer] Address [address] [facility] 7t [place] [address] Care Team Providers Care Oil Well Pumper Name Role Phone Jil Tavarez Primary Care Provider [phone] Dian Chen MD Primary Care Provider Encounter Details Date Type Department Care Team (Late st Contact Info) Description 05/16/2023 Abstract [facility] ADULT DENTAL [address] [place] [address] Segun Richardson, FREDRICK [address] [place] [address] Social History Tobacco Use Types Packs/Day Years Used Date Smoking Tobacco: Every Day Cigarettes Smokeless Tobacco: Never Alcohol Use Standard Drinks/Week Comments Yes 0 (1 standard drink = 0.6 oz pur e alcohol) Depression Answer Date Recorded Patient Health Questionnaire-9 Score 0 12/18/2022 Housing Stability Answer Date Recorded What is your housing situation today? I have claudio lance 05/16/[address] you [...] Description 05/18/2025 2:30 PM EDT Office Visit [facility] [address] [place] [address] Adonis Vogt DDS [address] [place] [address] documented as of this encounter Visit Diagnoses Not on filedocumented in this encounter Additional Health Concerns Assessment Noted Time PHQ-9 Depression Total Score: 0 12/19/19 9:49 AM EDT documented as of this encounter Care Teams Oil Well Pumper Relationship Specialty Start Date End Date Jil Tavarez FNP [address] [place] [address] PCP - General Family Medicine 02/11/23 09/30/23 Dian Chen MD [address] [place] [address] PCP - General Family Medicine 10/01/23 documented as of this encounter
--- OUTSIDE RECORDS SUMMARY | 2025-05-05 16:40 | XMS_ITS | Encounter Summary ---
Author Organization [facility] [employer] [facility] Address [address] [place] [address] 7t [place] [address] Care Team Providers Care Staple Fiber Washer Name Role Phone Emma MelaraP Primary Care Provider Luisa Jil Arthur Primary Care Provider [phone] Dian Chen MD Primary Care Provider [phone] Encounter Details Date Type Department Care Team (Latest Contact Info) Description 01/27/2019 Abstract [facility] CONVERSIONS Dental, Provider, DDS Social History [...] Description 05/18/2025 2:30 PM EDT Office Visit [facility]ULT [facility] [address] [place] [address] Adonis Vogt DDS [address] [place] [address] documented as of this encounter Visit Diagnoses Not on filedocumented in this encounter Care Teams Staple Fiber Washer Relationship Specialty Start Date End Date Emma Melara FNP PCP - General Family Medicine 04/07/22 02/10/23 Jil Tavarez FNP [address] [place] [address] PCP - General Family Medicine 02/11/23 09/30/23 Dian Chen MD [address] [place] [address] PCP - General Family Medicine 10/01/23 documented as of this encounter
--- NOTE | 2025-06-01 09:25 | HO.ANESPROP2 ---
Documented by User: Tona Estrella NP 06/01/25 09:26 HPI - Anesthesia Eval Consult details Narrative: 55 yr old male for colonoscopy Cannabis use High triglycerides: 302 in 2023 Mild asthma [facility] Past Medical History Medical History Inguinal hernia Gastroesophageal junction ulcer Allergic reaction to plant, excluding food Mild persistent asthma Mood disorder Psoriasis Chronic low back pain Surgical History Surgical History Hx of inguinal hernia repair History of esophagogastroduodenoscopy Social History Social History Alcohol intake: unknown Patient Tobacco Use Status: Current everyday Tobacco user Tobacco use type: Cigarette Cigarettes Per Day: 10 Use of substances other than those prescribed or required for medical reasons: No Are you DNR?: No Advance Directives: No Advance Directives Information Provided: Yes Meds Allergies Allergy/AdvReac Type Severity Reaction Status Date / Time shellfish derived Allergy Severe Anaphylaxis Verified 06/03/25 11:09 marijuana (cannabis) Allergy Unknown Unknown Verified 06/03/25 11:09 Home Medications ?Medication ?Instructions ?Recorded ?Confirmed ?Last Taken ?Type albuterol sulfate 90 mcg/actuation 2 puff inhalation Q6H PRN 10/29/24 06/03/25 Unknown History aerosol inhaler Shortness Of Breath Or Wheezing cetirizine 10 mg capsule (Zyrtec) 10 mg PO DAILY PRN Allergy Symptoms 10/29/24 06/03/25 Unknown History epinephrine 0.3 mg/0.3 mL 0.3 mg IM Q10M PRN Allergy Symptoms 10/29/24 06/03/25 Unknown History injection, auto-injector fluoride (sodium) 1.1 % dental 1 appl dental BEDTIME 10/29/24 06/03/25 Unknown History paste (PreviDent 5000 Booster Plus) Documented by User: Carmela Rosario MD 06/03/25 12:14 [facility] Past Medical History Medical History Inguinal hernia Gastroesophageal junction ulcer Allergic reaction to plant, excluding food Mild persistent asthma Mood disorder Psoriasis Chronic low back pain Surgical History Surgical History Hx of inguinal hernia repair History of esophagogastroduodenoscopy History of Problems with Anesthesia: No Social History Social History Alcohol intake: unknown Patient Tobacco Use Status: Current everyday Tobacco user Tobacco use type: Cigarette Cigarettes Per Day: 10 Use of substances other than those prescribed or required for medical reasons: No Are you DNR?: No Advance Directives: No Advance Directives Information Provided: Yes Meds Allergies Allergy/AdvReac Type Severity Reaction Status Date / Time shellfish derived Allergy Severe Anaphylaxis Verified 06/03/25 11:09 marijuana (cannabis) Allergy Unknown Unknown Verified 06/03/25 11:09 Home Medications ?Medication ?Instructions ?Recorded ?Confirmed ?Last Taken ?Type albuterol sulfate 90 mcg/actuation 2 puff inhalation Q6H PRN 10/29/24 06/03/25 Unknown History aerosol inhaler Shortness Of Breath Or Wheezing cetirizine 10 mg capsule (Zyrtec) 10 mg PO DAILY PRN Allergy Symptoms 10/29/24 06/03/25 Unknown History epinephrine 0.3 mg/0.3 mL 0.3 mg IM Q10M PRN Allergy Symptoms 10/29/24 06/03/25 Unknown History injection, auto-injector fluoride (sodium) 1.1 % dental 1 appl dental BEDTIME 10/29/24 06/03/25 Unknown History paste (PreviDent 5000 Booster Plus) Exam Airway Mallampati Class: III TM Dist: >3cm Neck ROM: Full Partial: Upper Loose/Missing/Broken Teeth: Yes and Upper Heart: RRR Lungs: CTA Assessment and Plan Assessment Anesthesia Assessment: Anesthesia Plan Discussed and Chart Reviewed Final Anesthetic Review History of Problems with Anesthesia: No NPO: Yes ASA Class: II Final Preanesthetic Review: Meds/Allgs Chart Reviewed, Consent Obtained/Reviewed and Anes Risks/Benef Reviewed Patient Risk: Low Procedure Risk: Low Anesthetic Plan Anesthetic Plan: MAC: Disposition: Standard PACU
[2025-06-01 14:09] VITALS: BMI 26.6
--- NOTE | 2025-06-03 10:52 | MHC.SHP ---
Pre-Procedural Eval Section A - 24 Hr Update-Section A only Date of Service: 06/03/25 The patient is an INPATIENT: No The patient has been examined within 24 hours of the surgical procedure. The History & Physical has been completed within 30 days and I have reviewed it.: No Section B - Complete if H&P > 30 days Chief Complaint: screening Relevant Family History (Specify if Yes): No Relevant Social History: Tobacco Use Present Medications: see Short Stay Collaborative assessment Medical History: Significant History (Mild persistent asthma Mood disorder Psoriasis Chronic low back pain) History of Previous Operations: Relevant previous surgery/procedure and date(s) (History of EGD) Allergies: Allergies Allergy/AdvReac Type Severity Reaction Status Date / Time shellfish derived Allergy Severe Anaphylaxis Verified 11/02/24 08:56 marijuana (cannabis) Allergy Unknown Unknown Verified 11/02/24 08:56 Review of Systems Sugical H&P ROS: Negative: Constitution, Cardiovascular, Respiratory and Gastrointestinal Exam Surgical H&P Exam: Normal: Heart, Normal: Lungs, Normal: Extremities and Normal: Abdomen Plan Diagnosis/Plan: Unchanged I have reviewed the history and physical and performed a pertinent physical examination on my patient. No changes have occurred unless specified. Time Spent With Patient Time: Total time managing care of this patient today ____ minutes.
[2025-06-03 11:12] VITALS: BMI 24.9
[2025-06-03] MEDS: Lactated Ringers 1,000 ML 100 ML IVCONT (11:35)
--- NOTE | 2025-06-03 13:06 | P.OPN-COLO_ITS ---
Colonoscopy Operative Note Operative Note Date of Service: 06/03/25 Narrative: COLONOSCOPY TILL CECUM WITH BIOPSIES, SNARE POLYPECTOMY, SUBMUCOSAL INJECTION AND HEMOCLIP PLACEMENT Pre-op diagnosis: Colon cancer screening (First colon). Post-op diagnosis:? Colon polyps, Diverticulosis, hemorrhoids Endoscopist:? Elizabeth Jaffe MD Anesthesia:?MAC Consent: Indications for the procedure and potential complications of bleeding, perforation, reaction to medications and missed diagnosis were discussed with the patient and informed consent was obtained. Instrument: Olympus PCF H 190 L variable stiffness pediatric colonoscope Monitoring: Vital signs and clinical assessment, intermittent blood pressure monitoring, continuous EKG monitoring, Pulse oximetry and Carbon Dioxide monitoring were done throughout the procedure. Please see anesthesia flowsheet. Colon withdrawl time was 25 minutes. Procedure: The patient was placed in the left lateral decubitis position and pre-procedure medications were administered. After a digital rectal examination of the ano-rectum, the video colonoscope was inserted into the rectum and advanced through the colon to the cecum. The colonoscope was slowly withdrawn in a retrograde panoramic fashion and the colon mucosa was carefully examined including a retroflexed view of the rectum. Findings and interventions are described below. Procedure Difficulty: without difficulty Findings: Terminal Ileum: Not evaluated Cecum: Normal Ascending Colon: A 10 mm sessile polyp in the mid ascending colon - removed with a cold snare. A 2-3 mm sessile polyp - removed with a cold biopsy. A 2 cms flat polyp at 60 cms - raised with 5 cc of Eleview and removed with a hot snare. Polypectomy site was closed with 1 hemoclip and marked with Juani ink. Transverse Colon: Normal Descending Colon: Normal Sigmoid Colon: A 10 mm sessile polyp - removed with a hot snare. Moderate diverticulosis Rectum: Normal Ano-rectum: Moderate internal hemorrhoids Colon preparation: Good after some irrigation. [place] Bowel Preparation Scale Right colon; 2 Transverse colon: 2 Left colon; 2 (0 = Unprepared colon segment with mucosa not seen due to solid stool that cannot be cleared. 1 = Portion of mucosa of the colon segment seen, but other areas of the colon segment not well seen due to staining, residual stool and/or opaque liquid. 2 = Minor amount of residual staining, small fragments of stool and/or opaque liquid, but mucosa of colon segment seen well. 3 = Entire mucosa of colon segment seen well with no residual staining, small fragments of stool or opaque liquid) Impression and Post Procedure Diagnosis: Colonoscopy Findings: Four small to medium sized polyps were removed Moderate diverticulosis seen in the sigmoid colon Moderate hemorrhoids on retroflexed exam. Plan: I will send a letter with biopsy results. Repeat Colonoscopy in 2-3 years if polyps are adenomatous and 10 year if polyps are hyperplastic. Above findings were reviewed with the patient and relevant handouts were given and the discharge area.
[2025-06-03 13:09] VITALS: BP 89/61; PULSE 75; RESP 16; TEMP 36.4; O2SAT 96
[2025-06-03 13:24] VITALS: BP 130/69; PULSE 68; RESP 14; TEMP 36.8; O2SAT 99
== END 2025-06-03 13:51 | disposition home or self-care (01) ==
PROVIDERS: PCP General Practice; Visit Provider Internal Medicine Gastroenterology
PROC: 0DJD8ZZ Inspection of Lower Intestinal Tract, Via Natural or Artificial Opening Endoscopic (ICD-10-PCS; CPT 45378; principal; 2025-06-03 11:50)
DX: Z12.11 Encounter for screening for malignant neoplasm of colon (principal); K64.8 Other hemorrhoids; K57.30 Diverticulosis of large intestine without perforation or abscess without bleeding; D12.2 Benign neoplasm of ascending colon
CPT/HCPCS: 45385; 45381; 88305; J2704

== ENCOUNTER → 2025-06-03 09:53 | Outpatient (BNV) | payer OTHER, SELFPAY | PROVIDERS: PCP General Practice; Visit Provider Internal Medicine Gastroenterology | DX: Z12.11 Encounter for screening for malignant neoplasm of colon (principal); D12.2 Benign neoplasm of ascending colon; D12.5 Benign neoplasm of sigmoid colon; K57.30 Diverticulosis of large intestine without perforation or abscess without bleeding; K64.8 Other hemorrhoids | CPT/HCPCS: 45381; 45385 ==